=== PATIENT | female | born 1940 | race Caucasian/White ===

== ENCOUNTER 2024-04-25 09:14 | Emergency (ER) | payer MEDICARE, OTHER, SELFPAY ==
[2024-04-25 09:19] VITALS: BP 166/77; BMI 25.9
[2024-04-25 09:26] VITALS: BP 166/77
--- NOTE | 2024-04-25 09:30 | EDRN ---
Pt repeated to me several times and told Roge RAMOS when in to see her that her had just . pt's son said 8 months ago.
--- NOTE | 2024-04-25 09:43 | EDRN ---
Unable to get IV access and bloods w/ IV VAT called for access and labs at thistime.
--- NOTE | 2024-04-25 09:56 | ED.GENMED ---
History of Present Illness
General
Chief Complaint: Headache
Time Seen by Provider: 04/25/24 09:23
History of Present Illness
History of Present Illness:
83-year-old female presents to the emergency department for evaluation of lightheadedness, headache, and vomiting. She is reportedly complained of a headache for the past 2 days but on arrival to the ED denies any headache. She does have
underlying dementia and repeatedly informs me that she 'just lost her ' which apparently occurred 8 months ago. 4 episodes of vomiting this morning. No reported diarrhea. Patient currently denies complaints other than lightheadedness. No
ill contacts recently. No reported fevers
Past History
Past History
ED Past Medical History: Other (Lumpectomy for breast cancer, heart block, previous sepsis from infected kidney stone, previous back surgery)
ED Past Surgical History: None
Social History
Tobacco: Non-smoker
Alcohol: None
Family History
Family History: Other (Mother with COPD Father with leukemia brother with esophageal cancer)
Review of Systems
Review of Systems
Allergies reviewed?: Yes
All Other Systems: ROS reviewed and negative except as documented in HPI and ROS
Phy Exam
Physical Exam
Physical Exam:
GEN: Well appearing, NAD, WDWN
HEENT: Oral mucosa moist, no scleral icterus, no nasal congestion
Cardiac: Regular rate
Lung: No respiratory distress, no tachypnea
MSK: No gross deformity or injuries
Skin: Good color, no pallor or jaundice, no rashes
Neuro: AO x3; CN II-XII grossly intact. BUE strength 5/5 in all alexandre, sensation intact and symmetric. BLE strength 5/5 in all alexandre, sensation intact and symmetric
Psych: Calm, cooperative
Course
Orders/Labs/Results
Orders:
Orders
04/25/24 09:33
Electrocardiogram (*1) Urgent
Reason for Study: Chest Pain
Cardiac Monitoring- Treatment ONCE
EKG- Treatment ONCE
IV Insert/Care/Rem.- Treatment PRN
04/25/24 09:41
0.9% Sodium Chloride 1000 ml [Nss] 1,000 ml IV BOLUS
Ondansetron Injectable [Zofran] 4 mg IV NOW STA
04/25/24 09:42
CT Head W/o Iv Contrast Urgent
Comment:
Reason For Exam: headache, vomiting
04/25/24 10:00
Complete Blood Count/With Diff Urgent
Comprehensive Metabolic Panel Urgent
Lipase Urgent
Abnormal Lab Results
04/25/24
10:00
MCH 31.2 H pg
(27.0-31.0)
Absolute Lymphs (auto) 1.0 L 10^3/uL
(1.2-3.4)
Neutrophils % 79.3 H %
(42.2-75.2)
Lymphocytes % 12.0 L %
(20.5-51.1)
BUN 19 H mg/dl
(7-17)
Glucose 112 H mg/dl
(70-99)
04/25/24 10:00
04/25/24 10:00
Vital Signs
Initial and Last Documented VS:
Initial Vital Signs
Temp Pulse Resp BP Pulse Ox
97.6 F 62 12 166/77 97
04/25/24 09:19 04/25/24 09:19 04/25/24 09:19 04/25/24 09:19 04/25/24 09:19
Last Documented Vital Signs
Temp Pulse Resp BP Pulse Ox
97.6 F 65 11 137/73 96
04/25/24 09:19 04/25/24 11:45 04/25/24 11:45 04/25/24 11:00 04/25/24 11:45
MDM/Problems Addressed
MDM/Problems Addressed:
Unclear cause to symptoms, workup in the ED is unremarkable. The patient feels well at time of discharge. May be self-limited viral syndrome
*Critical Care Note
Total Time (30-74mins, 75-104mins- exclusive of procedures): Not Applicable
ED Attending Note
-
Portions of this chart may have been created with voice recognition software.� Occasional wrong word or��sound alike� substitutions may have occurred due to the inherent limitations of voice recognition software.
Discharge Plan
Departure
Patient Disposition: Home (Routine Discharge)
Date of Disposition: 04/25/24
Time of Disposition: 12:00
Patient with high blood pressure during this ER visit?: No
Discharge Problem:
Intermittent lightheadedness
Instructions: Headache, Adult (DC)
Prescriptions:
No Action
acetaminophen 325 MG tablet
650 mg PO Q4HPRN PRN (Reason: pain/fever) 0RF
Referrals:
Valente Soto MD [Family Provider] -
Interventions
Interventions:
*Risk Screen - Suicide Last Done: 04/25/24 09:19
*General Assessment Last Done: 04/25/24 09:19
*Neglect/Abuse Screening Last Done: 04/25/24 09:19
ED- Fall Risk Assessment Last Done: 04/25/24 09:19
*ED COVID-19 Vaccine History Last Done: 04/25/24 09:19
*Nursing Disposition Last Done: 04/25/24 12:41
ED- Neurological Assessment Last Done: 04/25/24 09:40
Discharge Date and Time
Discharge Date/Time: 04/25/24 12:42
Print Language: URDU
[2024-04-25 10:00] VITALS: BP 152/76
[2024-04-25] MEDS: ZOFRAN 4 MG IV (10:04)
[2024-04-25] MEDS: NSS 1000 IV (10:04)
[2024-04-25 10:27] LABS: % Basophils 0.6 % (0-2); % Eosinophils 2.2 % (0-6); % Immature Granulocytes 0.2 % (0-0.5); % Monocytes 5.7 % (1.7-9.3); % Neutrophils 79.3 % (42.2-75.2); Absolute Basophils 0.1 10^3/uL (0-0.2); Absolute Eosinophils 0.2 10^3/uL (0-0.7); Absolute Monocytes 0.5 10^3/uL (0.1-0.6); Absolute Neutrophils 6.5 10^3/uL (1.4-6.5); Hematocrit 41.4 % (37.0-47.0); Hemoglobin 13.8 g/dL (12.0-16.0); Mean Corp Hgb Conc. 33.3 g/dL (33.0-37.0); Mean Corpuscular Hgb 31.2 pg (27.0-31.0); Mean Corpuscular Volume 93.7 fL (81.0-99.0); Mean Platelet Volume 9.5 fL (7.4-10.4); Nucleated Red Blood Cells % 0 %; Platelet Count 233 10^3/uL (130-400); Red Blood Cell Count 4.42 10^6/uL (4.20-5.40); Red Cell Dist. Width 12.4 % (11.5-14.5); White Blood Cell Count 8.2 10^3/uL (4.8-10.8)
[2024-04-25 10:56] LABS: ALT (SGPT) 22 U/L (0-35); AST (SGOT) 25 U/L (14-36); Albumin 4.2 g/dl (3.5-5.0); Alkaline Phosphatase 57 U/L (38-126); Blood Urea Nitrogen 19 mg/dl (7-17); Calcium 9.4 mg/dl (8.4-10.2); Carbon Dioxide 27 mmol/L (22-30); Chloride 106 mmol/L (98-107); Estimated Creatinine Clearance 50 ml/min; Glucose 112 mg/dl (70-99); Lipase 64 U/L (23-300); Potassium 4.2 mmol/L (3.5-5.1); Sodium 140 mmol/L (135-145); Total Bilirubin 0.7 mg/dl (0.2-1.3); Total Protein 6.5 g/dl (6.3-8.2); eGFR > 60.00
[2024-04-25 11:00] VITALS: BP 137/73
== END 2024-04-25 12:42 | disposition home or self-care (01) ==
LOC: EMR 09:14
PROVIDERS: Physician Assistant; EMERGENCY PHYSICIAN Student in an Organized Health Care Education/Training Program; FAMILY PHYSICIAN Family Medicine
DX: R51.9 Headache, unspecified (principal); R11.2 Nausea with vomiting, unspecified; F03.90 Unspecified dementia, unspecified severity, without behavioral disturbance, psychotic disturbance, mood disturbance, and anxiety; Z85.3 Personal history of malignant neoplasm of breast; Z87.442 Personal history of urinary calculi
CPT/HCPCS: 99284; 96374; 70450; 80053; 83690; 85025; 93005

== ENCOUNTER 2025-01-28 12:22 | Emergency (ER) | payer MEDICARE, OTHER, SELFPAY ==
[2025-01-28 12:24] VITALS: BP 145/94
--- NOTE | 2025-01-28 14:15 | ED.GENMED ---
History of Present Illness
General
Chief Complaint: Fall
Source: patient
Exam Limitations: none
Time Seen by Provider: 01/28/25 13:53
Nursing documentation reviewed up to this point in time: agreed with
History of Present Illness
History of Present Illness:
Patient is an 84-year-old female presents to the ER for evaluation of fall. Patient tripped over a curb last night and fell hitting her face on the curb and her left knee. She complains of a small lip believes her front teeth may have shifted.
She denies actually hitting her head no loss of conscious no headache no blood thinners.
Past History
Past History
ED Past Medical History: Other (Lumpectomy for breast cancer, heart block, previous sepsis from infected kidney stone, previous back surgery)
ED Past Surgical History: None
Social History
Tobacco: Non-smoker
Alcohol: None
Family History
Family History: Other (Mother with COPD Father with leukemia brother with esophageal cancer)
Phy Exam
General Physical Exam
General Presentation: no apparent distress
General age: appears stated age
General Skin: warm and dry
General Habitus: elderly
General Mental: alert
General Hydration: appears well hydrated
ENT Exam
ENT Exam: other (Upper lip mildly swollen small inner lip abrasion no obvious fx or chip noted to teeth )
Neurological Exam
Neurological Exam: alert and oriented x3
Musculoskeletal Exam
Musculoskeletal Exam: other (Left knee mildly swollen mildly tender to touch full range of motion)
Skin Exam
Skin Exam: normal color and warm/dry
Psychiatric Exam
Psychiatric Exam: normal mood/affect
Course
Orders/Labs/Results
Orders:
Orders
01/28/25 12:28
Knee, Left 4 or More Views [CR Knee - Left 4 Or More View*] Urgent
Comment:
Reason For Exam: pain
01/28/25 14:17
CT Facial Bones W/o Iv Contras Urgent
Comment:
Reason For Exam: trauma
CT Head W/o Iv Contrast Urgent
Comment:
Reason For Exam: trauma
Vital Signs
Initial and Last Documented VS:
Initial Vital Signs
Temp Pulse Resp BP Pulse Ox
97.8 F 81 16 145/94 98
01/28/25 12:24 01/28/25 12:24 01/28/25 12:24 01/28/25 12:24 01/28/25 12:24
Last Documented Vital Signs
Temp Pulse Resp BP Pulse Ox
97.8 F 81 16 145/94 98
01/28/25 12:24 01/28/25 12:24 01/28/25 12:24 01/28/25 12:24 01/28/25 14:17
MDM/Problems Addressed
Differential Diagnosis Includes:
Not limited to intracranial hemorrhage, facial fracture, knee contusion versus fracture dental injury lip contusion
MDM/Problems Addressed:
X-rays negative for fracture CAT scans negative as well. Will DC with outpatient dental follow-up. No obvious dental injury noted during my exam however family feels that teeth look shifted. While patient follow-up with her dentist discussed
icing her knee and her lip. Patient is very well-appearing stable for discharge home.
*Radiology
Radiology exam reviewed: radiology read reviewed
*Pulse Oximetry
SaO2: 98
Oxygen Mode of Delivery: Room air
Patient hypoxic: no
*Critical Care Note
Total Time (30-74mins, 75-104mins- exclusive of procedures): Not Applicable
ED Attending Note
-
Portions of this chart may have been created with voice recognition software.� Occasional wrong word or��sound alike� substitutions may have occurred due to the inherent limitations of voice recognition software.
Discharge Plan
Departure
Patient Disposition: Home (Routine Discharge)
Date of Disposition: 01/28/25
Time of Disposition: 17:08
Patient with high blood pressure during this ER visit?: Yes
Condition: Fair
Covid-19: Not Applicable
Discharge Problem:
Contusion, Dental injury
Instructions: Contusion (DC), BLOOD PRESSURE
Prescriptions:
No Action
acetaminophen 325 MG tablet
650 mg PO Q4HPRN PRN (Reason: pain/fever) 0RF
Referrals:
Valente Soto MD [Family Provider, Family Practice]
Activity Restrictions/Additional Instructions:
As discussed there were no facial fractures. Your knee xray was negative and your ct head was negative.
Please continue to ice the affected areas, your lip and knee over the next 24 hours 20 minutes at a time several times a day. Follow-up with your family doctor for reevaluation as well as your dentist. Return if any worsening of symptoms
Interventions
Interventions:
*Risk Screen - Suicide Last Done: 01/28/25 12:24
*General Assessment Last Done: 01/28/25 14:46
*Neglect/Abuse Screening Last Done: 01/28/25 12:24
*ED- Fall Risk Assessment Last Done: 01/28/25 14:46
ED-Musculoskeletal Assessment Last Done: 01/28/25 14:45
ED- Neurological Assessment Last Done: 01/28/25 14:45
ED-Skin Assessment Last Done: 01/28/25 14:45
Discharge Date and Time
Print Language: [email or web address]
[2025-01-28 17:14] VITALS: BP 151/81
== END 2025-01-28 17:28 | disposition home or self-care (01) ==
LOC: EMR 12:22
PROVIDERS: EMERGENCY PHYSICIAN Student in an Organized Health Care Education/Training Program; FAMILY PHYSICIAN Family Medicine
DX: S00.511A Abrasion of lip, initial encounter (principal); S09.8XXA Other specified injuries of head, initial encounter; M25.462 Effusion, left knee; W10.1XXA Fall (on)(from) sidewalk curb, initial encounter; Y92.480 Sidewalk as the place of occurrence of the external cause; Y93.01 Activity, walking, marching and hiking; Z85.3 Personal history of malignant neoplasm of breast
CPT/HCPCS: 99284; 70450; 70486; 73564